=== PATIENT | male | born 1950 | race Caucasian/White ===

== ENCOUNTER 2023-01-20 20:25 | Emergency (ER) | payer MEDICARE, OTHER ==
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
[2023-01-20] MEDS: oxyCODONE 5 MG TABLET PO STA (21:18)
[2023-01-20] MEDS: BACITRACIN ZINC OINT 1 PACKET TOP STA (21:18)
[2023-01-20 21:27] VITALS: BP 128/62
== END 2023-01-20 21:27 | disposition home or self-care (01) ==
LOC: ED 20:25
DX: T23.231A Burn of second degree of multiple right fingers (nail), not including thumb, initial encounter (principal); X19.XXXA Contact with other heat and hot substances, initial encounter
CPT/HCPCS: 99282; 99283